=== PATIENT | female | born 1995 | race Caucasian/White ===

== ENCOUNTER 2017-04-17 11:16 | Emergency (ER) | payer OTHER ==
--- NOTE | 2017-04-17 11:40 | ED Physician Documentation ---
General Adult - HISTORIAN Historian: patient - HPI Chief Complaint: General Adult Additional Information: SDORE THROAT AND LT EAR ACHE-DEC URINE OUTPUT Onset: days ago (3) Timing: worse Severity: moderate - ROS CONST: chills EYES/ENT: denies: problems with vision CVS/RESP: none GI/: other (DEC UA OUTPUT) MS/SKIN/LYMPH: none NEURO/PSYCH: denies: headache, fainting - PAST HX Past History: other (PREV TOXEMIA PREG HTN SORE THROATS CHILD) Surgeries/Procedures: (2) Allergies/Adverse Reactions: Allergies Allergy/AdvReac Type Severity Reaction Status Date / Time Penicillins Allergy Verified 06/06/16 11:24 Home Medications: Ambulatory Orders Medication Instructions Recorded Chlorzoxazone [Parafon Forte Dsc] 500 mg PO QID PRN #10 tablet 01/09/16 Meloxicam [Mobic] 7.5 mg PO BID PRN #10 tablet 01/09/16 - SOCIAL HX Smoking History: non-smoker Alcohol Use: none Drug Use: none - FAMILY HX Family History: No - VITAL SIGNS Vital Signs: Vital Signs Temp Pulse Resp BP Pulse Ox 146/88 06/06/16 12:52 - REVIEWED ASSESSMENTS Nursing Assessment Reviewed: Yes Vitals Reviewed: Yes General Adult Physical Exam - PHYSICAL EXAM GENERAL APPEARANCE: moderate distress EENT: eye inspection normal, ENT inspection normal, MARCELA, no nystagmus. No: pharynx normal, no signs of dehydration, dry mucous membranes NECK: normal inspection, thyroid normal, lymphadenopathy RESPIRATORY: no resp distress, chest non-tender, breath sounds normal CVS: reg rate & rhythm, heart sounds normal, equal pulses ABDOMEN: soft, non-tender BACK: normal inspection SKIN: warm/dry, normal color. No: cyanosis, diaphoresis, jaundice, mottled EXTREMITIES: non-tender NEURO: oriented X3, cognition normal Discharge Clincal Impression: ACUTE PHARYNGITIS LEFT OTITIS, MILD DEHYDRATION Referrals: GAURAV PENA FNP [Primary Care Provider] - 2 Days Home Medications: Ambulatory Orders Chlorzoxazone [Parafon Forte Dsc] 500 mg PO QID PRN #10 tablet 01/09/16 Meloxicam [Mobic] 7.5 mg PO BID PRN #10 tablet 01/09/16 Comments: HOME MEDS INC WATER Condition: Good Disposition: 01 HOME, SELF-CARE Decision to Admit: NO Decision Time: 11:39
[2017-04-17 11:49] VITALS: BP 135/78
== END 2017-04-17 12:00 | disposition home or self-care (01) ==
LOC: ED 11:16
DX: J02.9 Acute pharyngitis, unspecified (principal); H66.92 Otitis media, unspecified, left ear; E86.0 Dehydration
CPT/HCPCS: 87070; 87880; 99283

== ENCOUNTER 2017-12-25 18:17 | Emergency (ER) | payer OTHER ==
[2017-12-25 18:40] VITALS: BP 132/74
--- NOTE | 2017-12-25 18:47 | ED Physician Documentation ---
Upper Respiratory Symptoms - HISTORIAN Historian: patient - HPI Stated Complaint: sore throat Chief Complaint: Upper Respiratory Symptoms Additional Information: cough sore throat no fever onset 2 da ago. Onset: days ago (2) Duration: intermittent episodes Context: denies: recent foreign travel, insect bite(s) Severity: mild, moderate Associated Symptoms: sweating, runny nose, productive cough. denies: fever, chills, earache Worsened by Deep Breath: No Further Comments: no - ROS CONST/EYES: denies: weakness, eye redness, eye itching CVS/RESP: none. denies: chest pain, shortness of breath, palpitations LYMPH: denies: leg swelling, rash, swollen glands GI/: none - PAST HX Lung Disease: none PE Risk Factors: none Surgeries/Procedures: Immunizations: influenza, UTD Allergies/Adverse Reactions: Allergies Allergy/AdvReac Type Severity Reaction Status Date / Time Penicillins Allergy Verified 12/25/17 18:30 Home Medications: Ambulatory Orders Medication Instructions Recorded NK [NK] 12/25/17 - SOCIAL HX Smoking History: non-smoker Alcohol Use: none Drug Use: none - FAMILY HX Family History: no significant history - VITAL SIGNS Vital Signs: Vital Signs Temp Pulse Resp BP Pulse Ox 98.1 F 101 H 16 132/74 98 12/25/17 18:17 12/25/17 18:17 12/25/17 18:17 12/25/17 18:17 12/25/17 18:17 - REVIEWED ASSESSMENTS Nursing Assessment Reviewed: Yes Vitals Reviewed: Yes Upper Respiratory Symptoms - EXAM General Appearance: mild distress EENT: eyes nml inspection Neck: normal inspection Respiratory: no resp. distress Abdomen: non-tender CVS: reg rate & rhythm, heart sounds normal Skin: color nml, no rash, warm,dry. No: cyanosis, diaphoresis, pallor Extremities: non-tender Neuro/Psych: oriented x3, mood/affect nml Discharge Clincal Impression: viral uri Referrals: GAURAV PENA FNP [Primary Care Provider] - 2 Days Condition: Good Disposition: 01 HOME, SELF-CARE Decision to Admit: NO Decision Time: 18:49
== END 2017-12-25 18:47 | disposition home or self-care (01) ==
LOC: ED 18:17
DX: J06.9 Acute upper respiratory infection, unspecified (principal)
CPT/HCPCS: 87070; 87880; 99282

== ENCOUNTER 2018-05-13 13:26 | Emergency (ER) | payer OTHER ==
[2018-05-13 14:30] VITALS: BP 143/87
--- NOTE | 2018-05-13 14:34 | ED Physician Documentation ---
General Adult - HISTORIAN Historian: patient - HPI Stated Complaint: ? Insect Bite to the Left Lower Leg Chief Complaint: General Adult Onset: days ago (7) Timing: still present Severity: moderate Further Comments: yes (Pt is a 23 yo female with an abscess on her L leg. Sx began one week ago after an insect bite. Pt has had no fever; no n/v.) - ROS CONST: no problems EYES/ENT: none CVS/RESP: none GI/: none MS/SKIN/LYMPH: other (abscess L leg) - PAST HX Past History: other (C-sec) Allergies/Adverse Reactions: Allergies Allergy/AdvReac Type Severity Reaction Status Date / Time Penicillins Allergy Verified 12/25/17 18:30 Home Medications: Ambulatory Orders Medication Instructions Recorded NK [NK] 12/25/17 - SOCIAL HX Smoking History: non-smoker - FAMILY HX Family History: No - VITAL SIGNS Vital Signs: Vital Signs Temp Pulse Resp BP Pulse Ox 93 H 18 143/87 100 05/13/18 13:30 05/13/18 13:30 05/13/18 13:30 05/13/18 13:30 - REVIEWED ASSESSMENTS Nursing Assessment Reviewed: Yes Vitals Reviewed: Yes Progress - Progress Progress: Sx began 7 days ago; central darkening not likely to worsen. Rx Doxycycline 100 mg. Take one every 12 hrs for 10 days. Avoid prolonged sun exposure while taking this medicine. General Adult Physical Exam - PHYSICAL EXAM GENERAL APPEARANCE: no distress NECK: normal inspection, supple RESPIRATORY: no resp distress, chest non-tender, breath sounds normal CVS: reg rate & rhythm, heart sounds normal, equal pulses ABDOMEN: soft, no organomegaly, normal bowel sounds BACK: normal inspection SKIN: other (abscess L ant leg; 5 cm with mild induration and central darkening ) EXTREMITIES: normal range of motion, other (abscess L ant leg; 5 cm with mild induration and central darkening) NEURO: oriented X3, motor nml, sensation nml Discharge Clincal Impression: abscess L leg, possible insect bite Referrals: GAURAV PENA FNP [Primary Care Provider] - Condition: Good Disposition: 01 HOME, SELF-CARE Decision to Admit: NO Decision Time: 14:35
== END 2018-05-13 14:44 | disposition home or self-care (01) ==
LOC: ED 13:26
DX: L02.91 Cutaneous abscess, unspecified (principal)
CPT/HCPCS: 99282

== ENCOUNTER 2018-05-27 18:42 | Emergency (ER) | payer OTHER ==
--- NOTE | 2018-05-27 19:11 | ED Physician Documentation ---
General Adult - HISTORIAN Historian: patient - HPI Stated Complaint: LOW BACK PAIN Chief Complaint: General Adult Additional Information: Lifted a heavy box at work yesterday and felt a pop in left low back (points to SI area). Has tingling left lateral leg to mid lower leg. Has been taking tylenol and ibuprofen w/o relief. No loss bowel/bladder control, paralysis, weakness. No previous injury to back. No other modifying factors or associated signs. Given doxycycline script 2 weeks ago for abscess left leg, but abx made her sick, so she stopped them. - ROS CONST: no problems NEURO/PSYCH: tingling. denies: difficulty walking - PAST HX Past History: none Surgeries/Procedures: (x2) Allergies/Adverse Reactions: Allergies Allergy/AdvReac Type Severity Reaction Status Date / Time Penicillins Allergy Unknown Verified 05/27/18 18:52 Home Medications: Ambulatory Orders Medication Instructions Recorded Cyclobenzaprine HCl [Flexeril] 10 mg PO HS #7 tablet 05/27/18 Sulfamethoxazole/Trimethoprim 1 each PO BID #20 tab 05/27/18 [Bactrim Ds] traMADol HCL [Ultram] 50 mg PO Q6H PRN #10 tablet 05/27/18 - SOCIAL HX Smoking History: non-smoker - FAMILY HX Family History: No - VITAL SIGNS Vital Signs: Vital Signs Temp Pulse Resp BP Pulse Ox 143/87 05/13/18 14:44 - REVIEWED ASSESSMENTS Nursing Assessment Reviewed: Yes Vitals Reviewed: Yes Progress - Progress Progress: Report Submission Date: May 27, 2018 7:45:29 PM CDT Patient Study Name: ALESSIA GLASSERIE Yamile Date: May 27, 2018 7:18:34 PM CDT Modality Type: DX Gender: F Description: SPINE : 89 Institution: [facility] Physician: GERALD GLASS - ЕКАТЕРИНА Lumbar spine three views History: Low back pain and left lower extremity paresthesias after lifting box and hearing pop Findings: The lumbar spine is unremarkable without fracture, disc space narrowing, spondylolysis, or spondylolisthesis. Electronically signed on May 27, 2018 7:45:29 PM CDT by: Maulik Mcduffie ED Results Lab/Radiology - Orders Orders: ED Orders Category Date Time Status L SPINE 2 OR 3 VIEWS [RAD] Stat Exams 05/27/18 Ordered URINE HCG Stat Lab 05/27/18 Ordered General Adult Physical Exam - PHYSICAL EXAM GENERAL APPEARANCE: mild distress EENT: eye inspection normal NECK: normal inspection, supple RESPIRATORY: no resp distress, breath sounds normal CVS: reg rate & rhythm, no murmur ABDOMEN: soft, normal bowel sounds, no distension, non-tender BACK: normal inspection, no CVA tenderness, other (no vertebral tenderness, no detectable muscle spasm) SKIN: warm/dry, normal color, other (3 cm diameter erythema with central black scab, mid lateral left lower leg, 1 cm elevation, no fluctuance) EXTREMITIES: normal range of motion (gait and stance), no evidence of injury, other (SLR negative bilaterally to 90+ degrees) NEURO: CN's nml as tested, motor nml, sensation nml, cognition normal, other (reflexes 2+ throughout, can dorsiflex 1st toes against resistance) Discharge Clincal Impression: Lumbar strain Referrals: GAURAV PENA FNP [Primary Care Provider] - 2 Days Condition: Good Disposition: 01 HOME, SELF-CARE Decision to Admit: NO Decision Time: 19:48
[2018-05-27] MEDS: traMADol HCL 50 MG TABLET PO ONE (19:58)
[2018-05-27] MEDS: CYCLOBENZAPRINE HCL 5 MG TABLET PO ONE (19:58)
[2018-05-27 20:09] VITALS: BP 129/76
--- NOTE | 2018-05-28 14:57 | Diagnostic Imaging Report ---
GERALD GLASS [facility] [id number] Count Includes [facility] [address] [address] Report Submission Date: May 27, 2018 7:45:29 PM CDT Patient Study Name: GWENDOLYN GLASS Date: May 27, 2018 7:18:34 PM CDT Modality Type: DX Gender: F Description: SPINE : 89 Institution: [facility] Physician: GERALD GLASS Lumbar spine three views History: Low back pain and left lower extremity paresthesias after lifting box and hearing pop Findings: The lumbar spine is unremarkable without fracture, disc space narrowing, spondylolysis, or spondylolisthesis. Electronically signed on May 27, 2018 7:45:29 PM CDT by: Maulik TRIPP
== END 2018-05-27 20:02 | disposition home or self-care (01) ==
LOC: ED 18:42
DX: S39.012A Strain of muscle, fascia and tendon of lower back, initial encounter (principal); X50.0XXA Overexertion from strenuous movement or load, initial encounter; Y92.9 Unspecified place or not applicable; Y93.9 Activity, unspecified; Y99.9 Unspecified external cause status
CPT/HCPCS: 72100; 99283

== ENCOUNTER 2018-08-05 15:53 | Emergency (ER) | payer OTHER ==
[2018-08-05 16:52] LABS: BASOPHILS % 0.3 (0.0-1.5); EOSINOPHILS % 3.4 % (0.0-6.8); MONOCYTES % 6.4 % (0.0-11.0); NEUTROPHILS # 3.6 # k/uL (1.4-7.7)
--- NOTE | 2018-08-05 17:11 | ED Physician Documentation ---
Female Urogenital Problems - HPI Stated Complaint: Menses- Clots Chief Complaint: Female Urogenital Problems Onset: hours (24) Severity: mild Location of Pain: other (heavy menses) Further Comments: no - Vaginal Bleeding Compared to Menstrual Periods: heavier LNMP (Last Known Menstrual Period): 08/03/18 : 0 Para: 0 Description of Menstrual: other (history of heavy periods) Where was Test Done: clinic (blood) Sexual History: active Contraceptive: none - Associated Symptoms Urinary Symptoms: none. denies: discomfort w/ urination Discharge: denies: vaginal discharge, odorous discharge - ROS CONST: none GI/: denies: nausea, vomiting CVS/RESP: denies: chest pain, shortness of breath EYES/ENT: none NEURO/PSYCH: dizzy. denies: headache MS/SKIN/LYMPH: none - PAST HX Past History: other (heavy periods) Other History: none Surgeries/Procedures: none Allergies/Adverse Reactions: Allergies Allergy/AdvReac Type Severity Reaction Status Date / Time Penicillins Allergy Unknown Verified 05/27/18 18:52 Home Medications: Ambulatory Orders Medication Instructions Recorded Cyclobenzaprine HCl [Flexeril] 10 mg PO HS #7 tablet 05/27/18 traMADol HCL [Ultram] 50 mg PO Q6H PRN #10 tablet 05/27/18 - SOCIAL HX Smoking History: non-smoker Alcohol Use: none Drug Use: none - FAMILY HX Family History: none - VITAL SIGNS Vital Signs: Vital Signs Temp Pulse Resp BP Pulse Ox 97.6 F 72 16 152/85 08/05/18 15:55 08/05/18 15:55 08/05/18 15:55 08/05/18 15:55 - REVIEWED ASSESSMENTS Nursing Assessment Reviewed: Yes Vitals Reviewed: Yes ED Results Lab/Radiology - Lab Results Lab Results: Lab Results 08/05/18 16:48 WBC 6.30 K/ul K/ul (4.00-12.00) RBC 4.05 M/ul M/ul (3.90-5.20) Hgb 11.3 g/dL L g/dL (12.0-16.0) Hct 34.5 % % (34.5-46.5) MCV 85.0 fl fl (80.0-100.0) MCH 28.0 pg pg (28.0-34.0) MCHC 32.8 g/dL g/dL (30.0-36.0) RDW 13.9 % % (11.3-14.3) Plt Count 274 K/mm3 K/mm3 (130-400) Neut % (Auto) 57.0 % % (39.0-79.0) Lymph % (Auto) 32.9 % % (16.0-50.0) [place] % (Auto) 6.4 % % (0.0-11.0) Eos % (Auto) 3.4 % % (0.0-6.8) Baso % (Auto) 0.3 (0.0-1.5) Neut # (Auto) 3.6 # k/uL # k/uL (1.4-7.7) Lymph # (Auto) 2.1 # k/uL # k/uL (0.6-4.0) [place] # (Auto) 0.4 # k/uL # k/uL (0.0-0.9) Eos # (Auto) 0.2 # k/uL # k/uL (0.0-0.6) Baso # (Auto) 0.0 # k/uL # k/uL (0.0-0.5) Serum HCG - Negative - Orders Orders: ED Orders Category Date Time Status CBC/PLATELET/DIFF Routine Lab 08/05/18 16:48 Completed SERUM HCG Stat Lab 08/05/18 16:48 Received Female Urogenital Problems - EXAM General Appearance: no acute distress, alert EENT: MARCELA Neck: No: lymphadenopathy Respiratory: no resp. distress, breath sounds nml CVS: reg rate & rhythm, heart sounds normal Abdomen: soft, non-tender, no distention, nml bowel sounds Pelvic: other (deferred) Back: non-tender. No: CVA tenderness Skin: color nml, no rash, warm,dry Extremities: non-tender, no edema Neuro: oriented X3, motor nml Discharge Clincal Impression: Heavy menstrual period Qualifiers: Menorrahagia type: with regular cycle Qualified Code(s): N92.0 - Excessive and frequent menstruation with regular cycle Referrals: GAURAV PENA FNP [Primary Care Provider] - 2 Days Condition: Stable Disposition: 01 HOME, SELF-CARE Decision to Admit: NO Date of Decison to Admit: 08/05/18 Decision Time: 17:15
[2018-08-05 17:25] VITALS: BP 130/68
== END 2018-08-05 17:24 | disposition home or self-care (01) ==
LOC: ED 15:53
DX: N92.0 Excessive and frequent menstruation with regular cycle (principal)
CPT/HCPCS: 84703; 85025; 99283

== ENCOUNTER 2019-09-01 08:58 | Emergency (ER) | payer BC, OTHER ==
--- NOTE | 2019-09-01 09:14 | ED Physician Documentation ---
Upper Respiratory Symptoms - HISTORIAN Historian: patient - HPI Chief Complaint: Cough/ Upper Respiratory Additional Information: 24 year old female c/o body aches, fever, cough, congestion, sinus pressure, stuffy nose, and fatigue; started 3 days ago. She took some cough medicine last night and Tylenol today. Onset: days ago (3 days ago) Duration: sudden-Onset Context: denies: recent foreign travel, multiple patients Severity: moderate Associated Symptoms: fever, chills, earache (Left ear), runny nose, sore throat, productive cough Worsened by Deep Breath: No - ROS CONST/EYES: weakness CVS/RESP: none LYMPH: denies: rash GI/: denies: vomiting, nausea NEURO/PSYCH: denies: dizziness MS/SKIN: muscle aches - PAST HX Lung Disease: none PE Risk Factors: none Surgeries/Procedures: (x3), BLT Allergies/Adverse Reactions: Allergies Allergy/AdvReac Type Severity Reaction Status Date / Time Penicillins Allergy Unknown Verified 09/01/19 09:16 Home Medications: Ambulatory Orders Medication Instructions Recorded Azithromycin [Zithromax] 250 mg PO DAILY #6 tablet 09/01/19 Fluticasone Propionate [Flonase 1 spray NS DAILY #1 bottle 09/01/19 Nasal [place]] Guaifenesin [Mucinex] 600 mg PO BID #14 tab.er.12h 09/01/19 - SOCIAL HX Smoking History: non-smoker Alcohol Use: none Drug Use: none - FAMILY HX Family History: none - VITAL SIGNS Vital Signs: Vital Signs Temp Pulse Resp BP Pulse Ox 98.3 F 78 16 112/62 98 09/01/19 08:58 09/01/19 08:58 09/01/19 08:58 09/01/19 08:58 09/01/19 08:58 - REVIEWED ASSESSMENTS Nursing Assessment Reviewed: Yes Vitals Reviewed: Yes ED Results Lab/Radiology - Orders Orders: ED Orders Category Date Time Status GRP A STREP SCREEN Stat Lab 09/01/19 Ordered INFLUENZA A&B Stat Lab 09/01/19 08:58 Ordered Upper Respiratory Symptoms - EXAM General Appearance: alert, mild distress EENT: eyes nml inspection, lids & conjunct. nml, PERRL, pain over sinuses, maxillary, TM erythema, TM dullness (L), rhinorrhea, pharyngeal erythema Neck: lymphadenopathy (anterior cervical) Respiratory: breath sounds nml CVS: heart sounds normal Skin: color nml, no rash, warm,dry Extremities: normal range of motion Neuro/Psych: oriented x3, neuro intact, mood/affect nml Discharge Clincal Impression: Upper respiratory infection, Left middle ear infection Prescriptions: Azithromycin [Zithromax] 250 mg PO DAILY #6 tablet Fluticasone Propionate [Flonase Nasal [place]] 1 spray NS DAILY #1 bottle Guaifenesin [Mucinex] 600 mg PO BID #14 tab.er.12h Referrals: Primary Doctor,No [Primary Care Provider] - 2 Days Additional Instructions: Take antibiotic as directed (Zithromax 500mg today, then 250 mg daily x 4 days) Use Flonase nasal spray (1 spray in each nostril daily for congestion and sinus pressure) Take Mucinex by mouth twice a day Alternate Tylenol and Ibuprofen as needed for fever > 101/ body aches Hot tea with tsp of honey will help thin secretions causing throat discomfort Place cotton gently in ears when showering; avoid getting water in ears Follow up with PCP in one week for re-evaluation Condition: Good Disposition: 01 HOME, SELF-CARE Decision to Admit: NO Decision Time: 09:30
[2019-09-01 09:21] VITALS: BP 112/62
== END 2019-09-01 09:34 | disposition home or self-care (01) ==
LOC: ED 08:58
DX: J06.9 Acute upper respiratory infection, unspecified (principal); H66.92 Otitis media, unspecified, left ear
CPT/HCPCS: 87070; 87400; 87880; 99283; 99284